=== PATIENT | female | born 1985 | race Two or more races ===

== ENCOUNTER 2017-04-01 17:12 | Emergency (ER) | payer OTHER ==
[~2017-04-01] VITALS: Ht 157.5 cm; Wt 81.6 kg
== END 2017-04-01 19:38 | disposition home or self-care (01) ==
LOC: CED 17:12
DX: S16.1XXA Strain of muscle, fascia and tendon at neck level, initial encounter (principal); S20.219A Contusion of unspecified front wall of thorax, initial encounter; V49.50XA Passenger injured in collision with unspecified motor vehicles in traffic accident, initial encounter; Y92.410 Unspecified street and highway as the place of occurrence of the external cause
CPT/HCPCS: 99284